=== PATIENT | female | born 1975 | race Caucasian/White ===

== ENCOUNTER 2017-11-23 08:37 | Emergency (ER) | payer OTHER ==
[~2017-11-23] VITALS: Ht 162.6 cm; Wt 115.2 kg
[~2017-11-23 08:37] MED LIST: COUMADIN7.5 MG PO; EFFEXOR XR150 MG PO; KEFLEX500 MG PO; LEVOTHYROXIN0.025 MG PO; NORCO 10-325 T1 EAC1 PO; OMEPRAZOLE40 MG PO; REMERON15 MG PO; RISPERDAL0.25 MG PO; ROBAXIN 750 MG750 M1 PO; TRAZODONE HCL100 MG PO; XANAX 0.5 MG0.5 MG PO; XOPENEX HFA15 GM IH; ZOFRAN ODT4 MG PO
[2017-11-23] MEDS ORDERED: LASIX 20 MG TAB20 MG PO (08:54)
[2017-11-23] MEDS ORDERED: NORCO 5-325 TA1 EACH PO (09:30)
[2017-11-23 09:53] VITALS: BP 147/99
== END 2017-11-23 09:54 | disposition home or self-care (01) ==
LOC: ER 08:37
DX: S40.012A Contusion of left shoulder, initial encounter (principal); J45.909 Unspecified asthma, uncomplicated; F41.9 Anxiety disorder, unspecified; F32.9 Major depressive disorder, single episode, unspecified; E03.9 Hypothyroidism, unspecified; Z90.49 Acquired absence of other specified parts of digestive tract; Z90.710 Acquired absence of both cervix and uterus; Z88.6 Allergy status to analgesic agent; Z88.8 Allergy status to other drugs, medicaments and biological substances; W01.0XXA Fall on same level from slipping, tripping and stumbling without subsequent striking against object, initial encounter; Y93.89 Activity, other specified; Y92.89 Other specified places as the place of occurrence of the external cause; Y99.8 Other external cause status

== ENCOUNTER 2017-12-27 21:12 | Emergency (ER) | payer OTHER ==
[~2017-12-27] VITALS: Ht 162.6 cm; Wt 117.9 kg
[~2017-12-27 21:12] MED LIST changes: +LASIX 20 MG TAB20 MG PO; +NORCO 5-325 TA1 EACH PO
[2017-12-27] MEDS ORDERED: TRAMADOL 50 MG50 MG PO (22:00)
[2017-12-27] MEDS ORDERED: SYNTHROID25 MC1 PO (22:06)
[2017-12-27] MEDS ORDERED: COUMADIN 5 MG TA5 M1 PO (22:06)
[2017-12-27 22:10] VITALS: BP 139/75
== END 2017-12-27 22:13 | disposition home or self-care (01) ==
LOC: ER 21:12
DX: S09.90XA Unspecified injury of head, initial encounter (principal); M25.521 Pain in right elbow; M25.511 Pain in right shoulder; M54.2 Cervicalgia; E03.9 Hypothyroidism, unspecified; J45.909 Unspecified asthma, uncomplicated; F41.9 Anxiety disorder, unspecified; F32.9 Major depressive disorder, single episode, unspecified; Z90.710 Acquired absence of both cervix and uterus; Z90.89 Acquired absence of other organs; Z88.6 Allergy status to analgesic agent; W18.39XA Other fall on same level, initial encounter; Y92.89 Other specified places as the place of occurrence of the external cause; Y93.89 Activity, other specified; Y99.8 Other external cause status

== ENCOUNTER → 2018-01-31 | Emergency (ER) | payer OTHER ==
[~2018-01-31] VITALS: Ht 162.6 cm; Wt 111.1 kg
[~2018-01-31] MED LIST changes: +COUMADIN 5 MG TA5 M1 PO; +SYNTHROID25 MC1 PO; +TRAMADOL 50 MG50 MG PO
[2018-01-31 15:11] LABS: URINE BILIRUBIN NEGATIVE (Negative); URINE BLOOD NEGATIVE (Negative); URINE CLARITY CLEAR; URINE COLOR YELLOW; URINE GLUCOSE-RANDOM* NEGATIVE (Negative); URINE KETONES NEGATIVE (Negative); URINE LEUKOCYTES-REFLEX NEGATIVE (Negative); URINE NITRITE-REFLEX NEGATIVE (Negative); URINE PROTEIN (DIPSTICK) NEGATIVE (Negative); URINE SPECIFIC GRAVITY 1.015 (1.005-1.035); URINE UROBILINOGEN 0.2 E.U./dl (0.2-1.0)
[2018-01-31 15:46] LABS: BASOPHILS 1.4 % (0.0-2.0); EOSINOPHILS 2.2 % (0.0-3.0); HEMATOCRIT 38.6 % (37.0-47.0); LYMPHOCYTES 24.6 % (24.0-44.0); MCH 27.3 pg (26.0-34.0); MCHC 33.6 g/dL (28.0-37.0); MCV 81.4 fL (80.0-100.0); MONOCYTES 4.8 % (1.0-8.0); PLATELET COUNT 261 thou/uL (150-400); RBC 4.74 mil/uL (4.20-5.00); RDW 15.8 % (10.5-14.5); WBC 13.5 thou/uL (4.0-11.0)
[2018-01-31 15:55] LABS: ANION GAP 7 mmol/L (7-16); BUN 9 mg/dL (7-18); CALCIUM 8.7 mg/dL (8.5-10.1); CHLORIDE 101 mmol/L (98-107); CO2 24 mmol/L (21-32); CREATININE 0.7 mg/dL (0.6-1.0); GLUCOSE 109 mg/dL (74-106); POTASSIUM 4.8 mmol/L (3.5-5.1); SODIUM 132 mmol/L (136-145)
[2018-01-31 16:00] LABS: INR 1.1; PROTIME 11.3 Seconds (9.3-11.4)
[2018-01-31 16:03] LABS: LIPASE 100 U/L (73-393); SGOT 28 U/L (15-37); SGPT 17 U/L (30-65); TOTAL BILIRUBIN 0.4 mg/dL (<0.1-1.0); TOTAL PROTEIN 7.1 g/dL (6.4-8.2); TROPONIN-I <0.06 ng/mL (<0.06)
[2018-01-31 17:18] VITALS: BP 145/89
== END ==
LOC: ER 14:15
PROVIDERS: Emergency Medicine; Physician Assistant
DX: R11.2 Nausea with vomiting, unspecified (principal); R19.7 Diarrhea, unspecified; R10.13 Epigastric pain; R10.12 Left upper quadrant pain; E03.9 Hypothyroidism, unspecified; J45.909 Unspecified asthma, uncomplicated; F41.9 Anxiety disorder, unspecified; F32.9 Major depressive disorder, single episode, unspecified; Z88.6 Allergy status to analgesic agent; Z88.8 Allergy status to other drugs, medicaments and biological substances; Z90.49 Acquired absence of other specified parts of digestive tract; Z90.710 Acquired absence of both cervix and uterus; Z90.89 Acquired absence of other organs; Z98.890 Other specified postprocedural states

== ENCOUNTER 2018-03-07 07:57 | Emergency (ER) | payer OTHER ==
[~2018-03-07] VITALS: Ht 162.6 cm; Wt 119.3 kg
[2018-03-07 08:28] LABS: ABSOLUTE NEUTROPHILS 6.9 thou/uL (1.4-8.2); BASOPHILS 1.2 % (0.0-2.0); EOSINOPHILS 3.4 % (0.0-3.0); HEMATOCRIT 40.1 % (37.0-47.0); HEMOGLOBIN 13.5 gm/dL (12.0-15.0); LYMPHOCYTES 31.5 % (24.0-44.0); MCH 27.7 pg (26.0-34.0); MCHC 33.7 g/dL (28.0-37.0); MCV 82.1 fL (80.0-100.0); PLATELET COUNT 253 thou/uL (150-400); POLYS 57.9 % (36.0-66.0); RBC 4.88 mil/uL (4.20-5.00); RDW 14.6 % (10.5-14.5); WBC 11.9 thou/uL (4.0-11.0)
[2018-03-07 08:31] LABS: URINE BILIRUBIN NEGATIVE (Negative); URINE BLOOD NEGATIVE (Negative); URINE CLARITY CLEAR; URINE COLOR YELLOW; URINE GLUCOSE-RANDOM* NEGATIVE (Negative); URINE KETONES NEGATIVE (Negative); URINE LEUKOCYTES-REFLEX NEGATIVE (Negative); URINE NITRITE-REFLEX NEGATIVE (Negative); URINE PROTEIN (DIPSTICK) NEGATIVE (Negative); URINE UROBILINOGEN 0.2 E.U./dl (0.2-1.0)
[2018-03-07] MEDS ORDERED: QUETIAPINE FUMA50 M1 PO (08:48)
[2018-03-07] MEDS ORDERED: BUSPIRONE HCL10 MG PO (08:48)
[2018-03-07 08:51] LABS: CALCIUM 8.7 mg/dL (8.5-10.1); CREATININE 0.7 mg/dL (0.6-1.0); POTASSIUM 3.8 mmol/L (3.5-5.1); PROTIME 20.5 Seconds (9.3-11.4)
[2018-03-07] MEDS ORDERED: ULTRAM 50MG TAB50 MG PO (10:56)
[2018-03-07] MEDS ORDERED: NORFLEX100 MG PO (10:56)
[2018-03-07 11:11] VITALS: BP 112/74
== END 2018-03-07 11:14 | disposition home or self-care (01) ==
LOC: ER 07:57
PROVIDERS: Emergency Medicine
DX: S39.012A Strain of muscle, fascia and tendon of lower back, initial encounter (principal); G43.909 Migraine, unspecified, not intractable, without status migrainosus; E03.9 Hypothyroidism, unspecified; J45.909 Unspecified asthma, uncomplicated; Z90.49 Acquired absence of other specified parts of digestive tract; Z90.710 Acquired absence of both cervix and uterus; Z88.1 Allergy status to other antibiotic agents; Z88.6 Allergy status to analgesic agent; Z86.711 Personal history of pulmonary embolism; Z79.01 Long term (current) use of anticoagulants; X50.0XXA Overexertion from strenuous movement or load, initial encounter; Y93.89 Activity, other specified; Y92.89 Other specified places as the place of occurrence of the external cause; Y99.8 Other external cause status

== ENCOUNTER 2018-04-13 12:47 | Emergency (ER) | payer OTHER ==
[~2018-04-13] VITALS: Ht 162.6 cm; Wt 120.2 kg
[~2018-04-13 12:47] MED LIST changes: +BUSPIRONE HCL10 MG PO; +NORFLEX100 MG PO; +QUETIAPINE FUMA50 M1 PO; +ULTRAM 50MG TAB50 MG PO
[2018-04-13] MEDS ORDERED: ULTRAM 50MG TAB50 MG PO (14:52)
[2018-04-13] MEDS ORDERED: ACETAMINOPHEN-1 EAC1 PO (15:23)
== END 2018-04-13 15:15 | disposition home or self-care (01) ==
LOC: ER 12:47
DX: S83.92XA Sprain of unspecified site of left knee, initial encounter (principal); X58.XXXA Exposure to other specified factors, initial encounter; Y93.89 Activity, other specified; Y92.89 Other specified places as the place of occurrence of the external cause; Y99.8 Other external cause status; J45.909 Unspecified asthma, uncomplicated; F32.9 Major depressive disorder, single episode, unspecified; F41.9 Anxiety disorder, unspecified; E03.9 Hypothyroidism, unspecified; Z90.49 Acquired absence of other specified parts of digestive tract; Z90.710 Acquired absence of both cervix and uterus; Z88.6 Allergy status to analgesic agent; Z88.8 Allergy status to other drugs, medicaments and biological substances

== ENCOUNTER 2018-08-24 18:12 | Emergency (ER) | payer OTHER ==
[~2018-08-24] VITALS: Ht 162.6 cm; Wt 123.8 kg
[~2018-08-24 18:12] MED LIST changes: +ACETAMINOPHEN-1 EAC1 PO
[2018-08-24 19:57] LABS: ABSOLUTE NEUTROPHILS 8.3 thou/uL (1.4-8.2); BASOPHILS 1.4 % (0.0-2.0); HEMATOCRIT 41.6 % (37.0-47.0); HEMOGLOBIN 14.2 gm/dL (12.0-15.0); LYMPHOCYTES 26.8 % (24.0-44.0); MCHC 34.2 g/dL (28.0-37.0); MCV 81.8 fL (80.0-100.0); MONOCYTES 5.3 % (1.0-8.0); PLATELET COUNT 248 thou/uL (150-400); POLYS 64.5 % (36.0-66.0); RBC 5.08 mil/uL (4.20-5.00); RDW 15.1 % (10.5-14.5); WBC 12.9 thou/uL (4.0-11.0)
[2018-08-24 20:09] LABS: CALCIUM 8.9 mg/dL (8.5-10.1); CREATININE 0.7 mg/dL (0.6-1.0); POTASSIUM 3.6 mmol/L (3.5-5.1)
[2018-08-24 20:10] LABS: INR 1.2; PROTIME 12.7 Seconds (9.3-11.4)
[2018-08-24 20:47] VITALS: BP 164/86
== END 2018-08-24 20:47 | disposition left against medical advice (07) ==
LOC: ER 18:12
PROVIDERS: Emergency Medicine
DX: R51 Headache (principal); E03.9 Hypothyroidism, unspecified; J45.909 Unspecified asthma, uncomplicated; F41.9 Anxiety disorder, unspecified; F32.9 Major depressive disorder, single episode, unspecified; Z88.6 Allergy status to analgesic agent; Z90.89 Acquired absence of other organs; Z88.1 Allergy status to other antibiotic agents; Z90.49 Acquired absence of other specified parts of digestive tract; Z90.710 Acquired absence of both cervix and uterus